=== PATIENT | female | born 1975 | race Hispanic/Latino ===

== ENCOUNTER 2017-12-18 23:25 | Emergency (ER) | payer MEDICARE ==
--- NOTE | 2017-12-18 23:58 | Emergency Department Report ---
HPI - General Time Seen by Provider: 12/18/17 23:30 - HPI HPI: Room 23 The patient is a 42-year-old female presented with a chief complaint of heroin overdose. Patient brought in by EMS after being found cyanotic and pulseless. Per EMS the patient was administered 2 mg of Narcan IV and awakened. The patient admits to snorting heroin. The patient was brought in with her who was also unresponsive Location: [facility], see above Duration: [See above] Quality: Unresponsive, cyanotic Severity: Severe Modifying factors: [see above] Context: [see above] Mode of transportation: EMS ED Past Medical Hx - Past Medical History Hx COPD: Yes - Surgical History Past Surgical History?: No - Family History Family history: no significant - Social History Substance Use Type: Heroin - Medications Home Medications: Home Medications Medication Instructions Recorded Confirmed Last Taken Type ALBUTEROL Inhaler [ProAir HFA 8.5 12/19/17 Unknown History Inhaler] Carisoprodol [Soma] 350 mg PO TID 12/19/17 12/19/17 Unknown History Cetirizine HCl [Zyrtec] 10 mg PO ONCE 12/19/17 12/19/17 Unknown History Dextroamphetamine/Amphetamine 20 mg PO TID 12/19/17 12/19/17 Unknown History [Dextroamp-Amphetamin 20 mg Tab] Dextroamphetamine/Amphetamine 5 mg PO ONCE 12/19/17 12/19/17 Unknown History [Dextroamp-Amphetamine 5 mg Tab] Lidocaine [Lidocaine CREAM] 5 gm TP TID 12/19/17 Unknown History Linaclotide [Linzess] 72 mcg PO ONCE 12/19/17 12/19/17 Unknown History [place] Carbonate [[place] 300 mg PO TID 12/19/17 12/19/17 Unknown History Carbonate ER] Mirtazapine [Remeron] 30 mg PO ONCE 12/19/17 12/19/17 Unknown History Montelukast [Singulair] 10 mg PO ONCE 12/19/17 12/19/17 Unknown History Ondansetron [Zofran TAB] 8 mg PO TID 12/19/17 12/19/17 Unknown History Pantoprazole [Protonix TAB] 40 mg PO BID 12/19/17 12/19/17 Unknown History Pregabalin [Lyrica] 100 mg PO TID 12/19/17 12/19/17 Unknown History Quetiapine Fumarate [Seroquel] 300 mg PO BID 12/19/17 12/19/17 Unknown History clonazePAM 0.5 mg PO TID 12/19/17 12/19/17 Unknown History lamoTRIgine [LaMICtal] 200 mg PO BID 12/19/17 12/19/17 Unknown History oxyCODONE /ACETAMINOPHEN 10 mg PO TID 12/19/17 12/19/17 Unknown History ED Review of Systems ROS: Stated complaint: OVERDOSE Other details as noted in HPI Respiratory: shortness of breath Physical Exam - Physical Exam Physical Exam: GENERAL: The patient is well-developed well-nourished female in tearful sitting on stretcher. [] HEENT: Normocephalic. Atraumatic. Pupils 4-3 mm bilaterally. Patient has moist mucous membranes. NECK: Supple. Trachea midline CHEST/LUNGS: Clear to auscultation. There is no respiratory distress noted. HEART/CARDIOVASCULAR: Regular. There is no tachycardia. There is no gallop rub or murmur. ABDOMEN: Abdomen is soft, nontender. Patient has normal bowel sounds. There is no abdominal distention. SKIN: There is no rash. There is no edema. There is no diaphoresis. NEURO: The patient is awake, alert, and oriented. The patient is cooperative. The patient has no focal neurologic deficits. The patient has normal speech MUSCULOSKELETAL: There is no evidence of acute injury. ED Course - Reevaluation(s) Reevaluation #1: 12/19/17 02:00 Patient awake and talking with visitor at bedside. No acute distress ED Medical Decision Making - Lab Data Result diagrams: 12/18/17 23:46 12/18/17 23:46 Laboratory Tests 12/18/17 12/18/17 12/18/17 23:45 23:45 23:45 WBC RBC Hgb Hct MCV MCH MCHC RDW Plt Count Lymph % (Auto) Tripp % (Auto) Eos % (Auto) Baso % (Auto) Lymph # Tripp # Eos # Baso # Seg Neutrophils % Seg Neutrophils # Sodium Potassium Chloride Carbon Dioxide Anion Gap BUN Creatinine Estimated GFR BUN/Creatinine Ratio Glucose Calcium Total Bilirubin AST ALT Alkaline Phosphatase Total Creatine Kinase CK-MB (CK-2) CK-MB (CK-2) Rel Index Troponin T Total Protein Albumin Albumin/Globulin Ratio HCG, Qual Urine Color Urine Turbidity Urine pH Ur Specific [place] Urine Protein Urine Glucose (UA) Urine Ketones Urine Blood Urine Nitrite Urine Bilirubin Urine Urobilinogen Ur Leukocyte Esterase Urine WBC (Auto) Urine RBC (Auto) U Epithel Cells (Auto) Urine Bacteria (Auto) Urine Mucus Salicylates 4.3 Urine Opiates Screen Urine Methadone Screen Acetaminophen 15.0 Ur Barbiturates Screen Ur Phencyclidine Scrn Ur Amphetamines Screen U Benzodiazepines Scrn Urine Cocaine Screen U Marijuana (THC) Screen Drugs of Abuse Note Plasma/Serum Alcohol < 0.01 12/18/17 12/18/17 12/18/17 23:46 23:46 23:46 WBC 13.4 H RBC 3.75 Hgb 12.7 Hct 37.7 MCV 101 H MCH 34 H MCHC 34 RDW 12.9 L Plt Count 352 Lymph % (Auto) 12.6 L Tripp % (Auto) 4.8 Eos % (Auto) 1.1 Baso % (Auto) 0.2 Lymph # 1.7 Tripp # 0.6 Eos # 0.1 Baso # 0.0 Seg Neutrophils % 81.3 H Seg Neutrophils # 10.8 H Sodium Potassium Chloride Carbon Dioxide Anion Gap BUN Creatinine Estimated GFR BUN/Creatinine Ratio Glucose Calcium Total Bilirubin AST ALT Alkaline Phosphatase Total Creatine Kinase 137 H CK-MB (CK-2) 1.6 CK-MB (CK-2) Rel Index 1.1 Troponin T < 0.010 Total Protein Albumin Albumin/Globulin Ratio HCG, Qual Negative Urine Color Urine Turbidity Urine pH Ur Specific [place] Urine Protein Urine Glucose (UA) Urine Ketones Urine Blood Urine Nitrite Urine Bilirubin Urine Urobilinogen Ur Leukocyte Esterase Urine WBC (Auto) Urine RBC (Auto) U Epithel Cells (Auto) Urine Bacteria (Auto) Urine Mucus Salicylates Urine Opiates Screen Urine Methadone Screen Acetaminophen Ur Barbiturates Screen Ur Phencyclidine Scrn Ur Amphetamines Screen U Benzodiazepines Scrn Urine Cocaine Screen U Marijuana (THC) Screen Drugs of Abuse Note Plasma/Serum Alcohol 12/18/17 12/19/17 12/19/17 23:46 00:00 00:36 WBC RBC Hgb Hct MCV MCH MCHC RDW Plt Count Lymph % (Auto) Tripp % (Auto) Eos % (Auto) Baso % (Auto) Lymph # Tripp # Eos # Baso # Seg Neutrophils % Seg Neutrophils # Sodium 137 Potassium 3.6 Chloride 99.3 Carbon Dioxide 18 L Anion Gap 23 BUN 7 Creatinine 0.8 Estimated GFR > 60 BUN/Creatinine Ratio 9 Glucose 136 H Calcium 8.2 L Total Bilirubin 0.20 AST 12 ALT 7 Alkaline Phosphatase 60 Total Creatine Kinase CK-MB (CK-2) CK-MB (CK-2) Rel Index Troponin T Total Protein 6.4 Albumin 3.5 L Albumin/Globulin Ratio 1.2 HCG, Qual Urine Color Yellow Urine Turbidity Clear Urine pH 6.0 Ur Specific [place] 1.015 Urine Protein <15 mg/dl Urine Glucose (UA) Neg Urine Ketones Neg Urine Blood Sm Urine Nitrite Neg Urine Bilirubin Neg Urine Urobilinogen < 2.0 Ur Leukocyte Esterase Neg Urine WBC (Auto) 3.0 Urine RBC (Auto) 15.0 U Epithel Cells (Auto) 12.0 Urine Bacteria (Auto) 2+ Urine Mucus Few Salicylates Urine Opiates Screen Presumptive negative Urine Methadone Screen Presumptive negative Acetaminophen Ur Barbiturates Screen Presumptive negative Ur Phencyclidine Scrn Presumptive negative Ur Amphetamines Screen Presumptive negative U Benzodiazepines Scrn Presumptive negative Urine Cocaine Screen Presumptive negative U Marijuana (THC) Screen Presumptive positive Drugs of Abuse Note Disclamer Plasma/Serum Alcohol - EKG Data -: EKG Interpreted by Me EKG shows normal: sinus rhythm Rate: normal - EKG Data When compared to previous EKG there are: previous EKG unavailable Interpretation: nonspecific ST-T wave diana (T-wave inversion in lead 3, V2) - Radiology Data Radiology results: image reviewed (chest x-ray) interpreted by me: Chest x-ray- no focal infiltrates, no pneumothorax - Differential Diagnosis heroin overdose Critical care attestation.: If time is entered above; I have spent that time in minutes in the direct care of this critically ill patient, excluding procedure time. ED Disposition Clinical Impression: Heroin overdose Disposition: DC-01 TO HOME OR SELFCARE Is pt being admited?: No Does the pt Need Aspirin: No Condition: Stable Instructions: Polysubstance Abuse (ED), Narcotic Abuse (ED) Additional Instructions: Return to the emergency department immediately should you develop worsening symptoms, fever, inability to tolerate food or liquid or any other concerns. Referrals: ADELINA HEADLEY MD [Primary Care Provider] - 3-5 Days Time of Disposition: 02:23
[2017-12-19] MEDS ORDERED: NACL 0.9% 1000 ML 1,000 ML IV ONE
[2017-12-19 00:02] LABS: Basophils % (Auto) 0.2 % (0.0-1.8); Eosinophils # (Auto) 0.1 K/mm3 (0.0-0.4); Eosinophils % (Auto) 1.1 % (0.0-4.3); Hematocrit 37.7 % (30.3-42.9); Hemoglobin 12.7 gm/dl (10.1-14.3); Lymphocytes # (Auto) 1.7 K/mm3 (1.2-5.4); Lymphocytes % (Auto) 12.6 % (13.4-35.0); Mean Corpuscular HGB Conc 34 % (30-34); Mean Corpuscular Hemoglobin 34 pg (28-32); Mean Corpuscular Volume 101 fl (79-97); Monocytes # (Auto) 0.6 K/mm3 (0.0-0.8); Monocytes % (Auto) 4.8 % (0.0-7.3); Platelet Count 352 K/mm3 (140-440); Red Blood Count 3.75 M/mm3 (3.65-5.03); Red Cell Distribution Width 12.9 % (13.2-15.2)
[2017-12-19 00:21] LABS: Creatine Kinase MB 1.6 ng/mL (0.0-4.0)
[2017-12-19 00:22] LABS: Alanine Aminotransferase 7 units/L (7-56); Albumin 3.5 g/dL (3.9-5); BUN/Creatinine Ratio 9; Blood Urea Nitrogen 7 mg/dL (7-17); Calcium 8.2 mg/dL (8.4-10.2); Hemolysis Index 9
[2017-12-19 01:01] LABS: Bacteria,Urine 2+ /HPF (Negative); Bilirubin,Urine NEG (Negative); Blood,Urine SM (Negative); Color,Urine Yellow (Yellow); Mucus,Urine FEW /HPF; Nitrite,Urine NEG (Negative); Protein,Urine <15 mg/dL mg/dL (Negative); Urobilinogen,Urine < 2.0 mg/dL (<2.0)
[2017-12-19 01:06] LABS: Amphetamine Screen,Urine PRESUMPTIVE NEGATIVE; Benzodiazepines Screen,Urine PRESUMPTIVE NEGATIVE; Cocaine Screen,Urine PRESUMPTIVE NEGATIVE; Methadone Screen,Urine PRESUMPTIVE NEGATIVE; Opiate Screen,Urine PRESUMPTIVE NEGATIVE
[2017-12-19 01:20] LABS: Cannabinoid Screen,Urine PRESUMPTIVE POSITIVE
--- NOTE | 2017-12-19 01:28 | XRay Report ---
FINAL REPORT EXAM: XR CHEST 1V AP HISTORY: status post heroin overdose. Initially cyanotic TECHNIQUE: A portable view of the chest was submitted. FINDINGS: The lungs are clear. There is no evidence of congestion. The heart size is normal. There are EKG leads overlying the chest wall. The skeletal structures do not show any acute changes. IMPRESSION: No active chest disease.
[2017-12-19 03:03] VITALS: BP 146/101
== END 2017-12-19 03:00 | disposition home or self-care (01) ==
LOC: ED 23:25
DX: T40.1X1A Poisoning by heroin, accidental (unintentional), initial encounter (principal); J44.9 Chronic obstructive pulmonary disease, unspecified; Y92.89 Other specified places as the place of occurrence of the external cause
CPT/HCPCS: 36415; 71045; 80053; 80307; 81001; 82550; 82553; 84484; 84703; 85025; 93005; 93010; 99284; G0480; 80320